=== PATIENT | female | born 1980 | race Hispanic/Latino ===

== ENCOUNTER 2017-12-05 18:52 | Emergency (ER) | payer BC ==
[2017-12-05 18:53] VITALS: BMI 37.2
[2017-12-05 19:03] VITALS: BP 145/86; PULSE 75; RESP 16; TEMP 98.4; O2SAT 100
[2017-12-05] MEDS ORDERED: Tdap Vaccine 0.5 ml Vial (10-64 yrs) IM ONE ×2 (19:46→21:49)
--- NOTE | 2017-12-05 19:53 | ED PDOC ---
Lower Extremity Pain/Injury Time Seen by Provider: 12/05/17 19:19 Chief Complaint (Nursing): Lower Extremity Problem/Injury Chief Complaint (Provider): Right Foot Injury History Per: Patient History/Exam Limitations: no limitations Onset/Duration Of Symptoms: Days Current Symptoms Are (Timing): Still Present Additional Complaint(s): 37 year old female presents to the ED for an evaluation of the right foot. Patient states she was cutting food and accidentally dropped her knife on her foot and sustained a laceration on her right ankle. Wound covered with ice pack. Denies numbness or tingling. PMD: Laurie Corrales Past Medical History Reviewed: Historical Data, Nursing Documentation, Vital Signs Vital Signs: Last Vital Signs Temp 98.4 F 12/05/17 18:59 Pulse 75 12/05/17 18:59 Resp 16 12/05/17 18:59 BP 145/86 12/05/17 18:59 Pulse Ox 100 12/05/17 18:59 - Medical History PMH: Anxiety, Arthritis, Asthma Denies: Chronic Kidney Disease - Family History Family History: States: Unknown Family Hx - Home Medications Home Medications: Ambulatory Orders Medication Instructions Recorded Albuterol Sulfate [Albuterol Hfa] 2 puff INH QID PRN 02/19/15 Amoxicillin [Amoxil] 825 mg PO BID 02/19/15 Cholecalciferol [Vitamin D 1000 IU] 5,000 unit PO DAILY 02/19/15 Fluticasone Propionate [Flonase] 2 puff NA PRN PRN 02/19/15 Lorazepam [Ativan] 1 mg PO PRN PRN 02/19/15 Tramadol Hydrochloride [Tramadol] 50 mg PO DAILY 02/19/15 Hydrocodone/Acetaminophen [Vicodin 1 tab PO Q4 PRN 02/20/15 5 mg-300 mg] Cephalexin [Keflex] 500 mg PO BID #14 capsule 12/05/17 - Allergies Allergies/Adverse Reactions: Allergies Allergy/AdvReac Type Severity Reaction Status Date / Time acetaminophen [From Percocet] Allergy ITCHING Verified 12/05/17 19:23 almond Allergy SWELLING Verified 12/05/17 19:23 oxycodone Allergy ITCHING Verified 12/05/17 19:23 CALIFLOWER Allergy ITCHING Uncoded 02/19/15 11:23 Review of Systems ROS Statement: Except As Marked, All Systems Reviewed And Found Negative Musculoskeletal: Positive for: Foot Pain (right). Negative for: Other ( numbness or tingling) Physical Exam - Reviewed Nursing Documentation Reviewed: Yes Vital Signs Reviewed: Yes - Physical Exam Appears: Positive for: Non-toxic, No Acute Distress Head Exam: Positive for: ATRAUMATIC, NORMAL INSPECTION, NORMOCEPHALIC Skin: Positive for: Normal Color, Warm Eye Exam: Positive for: Normal appearance Extremity: Positive for: Tenderness (7cm linear laceration to right ankle medial to achilles), Other (mild bleeding). Negative for: Deformity Neurologic/Psych: Positive for: Alert, Oriented - ECG O2 Sat by Pulse Oximetry: 100 (RA) Pulse Ox Interpretation: Normal Medical Decision Making Medical Decision Making: Time: 1946 Initial Plan: --Adacel 0.5ml IM Suture repair by podiatry resident. Scribe Attestation: Documented by Terry Ferguson, acting as a scribe for Renata Gomez PA-C. Provider Scribe Attestation: All medical record entries made by the Scribe were at my direction and personally dictated by me. I have reviewed the chart and agree that the record accurately reflects my personal performance of the history, physical exam, medical decision making, and the department course for this patient. I have also personally directed, reviewed, and agree with the discharge instructions and disposition. Disposition - Clinical Impression Clinical Impression: Laceration of ankle, Tetanus toxoid vaccination administered at current visit - Disposition Referrals: Laurie Corrales MD [Primary Care Provider] - Norris Alfaro DPM [Staff Provider] - Disposition: Routine/Home Disposition Time: 22:56 Condition: GOOD Additional Instructions: [address] [place], [place] Prescriptions: Cephalexin [Keflex] 500 mg PO BID #14 capsule Instructions: Laceration Repair Forms: [employer] (Albanian)
[2017-12-05] MEDS ORDERED: Lidocaine 1% Inj (20ml) IJ ONE (21:15)
[2017-12-05] MEDS ORDERED: Lidocaine Hydrochloride 20 ML INJ ONE (21:49)
[2017-12-05] MEDS ORDERED: Povidone Iodine Topical 10% Sol ONE (21:57)
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
== END 2017-12-05 23:16 | disposition home or self-care (01) ==
LOC: H.ER 18:52 → SUPCPDRO 18:52 → H.ER 23:16
DX: S91.311A Laceration without foreign body, right foot, initial encounter (principal); J45.909 Unspecified asthma, uncomplicated; Z88.5 Allergy status to narcotic agent; W26.0XXA Contact with knife, initial encounter; Y93.G1 Activity, food preparation and clean up; Z23 Encounter for immunization